=== PATIENT | male | born 1985 | race Caucasian/White ===

== ENCOUNTER 2016-07-26 15:58 | Emergency (ER) | payer BC ==
[~2016-07-26] VITALS: Ht 175.3 cm; Wt 65.9 kg
[2016-07-26 16:20] VITALS: BP 129/82
[2016-07-26 17:05] LABS: HEMATOCRIT 40.3 % (38.0-50.0); MCH 30.4 PG (29.0-34.0); MCV 84.5 FL (86-99); MEAN PLAT.VOLUME 11.8 uM^3 (9.0-12.4); PLATELET COUNT 246 K/uL (156-360); RBC DIS.WIDTH-CV 12.6 % (11.8-14.6); RBC DIS.WIDTH-SD 38.6 % (39-53); RED BLOOD COUNT 4.77 M/uL (4.00-5.50); WHITE BLOOD COUNT 8.1 K/uL (4.1-10.2)
[2016-07-26 17:17] LABS: CHLORIDE 104 mEq/L (99-109); POTASSIUM 4.4 mEq/L (3.7-5.4); SODIUM 139 mEq/L (136-147)
[2016-07-26 17:18] LABS: GLUCOSE 87 mg/dL (70-99)
[2016-07-26 17:20] LABS: ANION GAP 9 MEQ/L (2-14)
[2016-07-26 17:23] LABS: GFR ESTIMATE (CALCULATED) > 59 mL/min/; UREA NITROGEN (BUN) 16 mg/dL (9-23)
[2016-07-26 17:25] LABS: TROP-I INTERPRETATION NEGATIVE; TROPONIN-I < 0.01 ng/mL (0.0-0.30)
== END 2016-07-26 17:02 | disposition left against medical advice (07) ==
LOC: EME 15:58
DX: M54.9 Dorsalgia, unspecified (principal); Z53.21 Procedure and treatment not carried out due to patient leaving prior to being seen by health care provider
CPT/HCPCS: 71020; 80048; 84484; 85027; 93005; 99281; 99283